=== PATIENT | female | born 1985 | race Two or more races ===

== ENCOUNTER 2025-04-22 13:55 | Inpatient (IN) | payer MEDICAID, OTHER ==
[~2025-04-22] VITALS: Ht 160 cm; Wt 83.1 kg
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
[2025-04-22 14:24] LABS: Eosinophils # (auto) 0.6 10 ^3/uL (0-0.8); Lymphocytes # (auto) 1.8 10 ^3/uL (0.4-5.4); Mean Corpuscular Hgb Conc. 35.3 g/dL (32.0-36.0); Red Blood Cells 2.66 10^6/uL (4.0-5.20); Red Cell Distribution Width 16.5 % (11.8-14.3)
[2025-04-22 14:26] LABS: Basophils # (auto) 0.1 10 ^3/uL (0-0.2); Eosinophils % (auto) 4.8 % (0.0-7.0); Hematocrit 34.9 % (36.0-46.0); Hemoglobin 12.3 g/dL (12.2-16.2); Lymphocytes % (auto) 13.6 % (10.0-50.0); Mean Corpuscular Hemoglobin 46.2 pg (28.0-32.0); Monocytes # (auto) 1.4 10 ^3/uL (0-1.3); Monocytes % (auto) 10.6 % (0.0-12.0); Nucleated Red Blood Cells % 0.2 %; Platelet Count (auto) 401 10^3/uL (140-450); White Blood Cell 12.9 10^3/uL (4.4-10.8)
[2025-04-22 14:34] LABS: Chloride 100 mmol/L (98-107)
[2025-04-22 14:35] LABS: Anion Gap 11 (5-15); Carbon Dioxide 24 mmol/L (20-31)
[2025-04-22 14:40] LABS: Calcium 8.2 mg/dL (8.7-10.4); Potassium 3.4 mmol/L (3.5-5.1); Sodium 135 mmol/L (136-145)
[2025-04-22 14:49] LABS: BUN/Creatinine Ratio 7.5 (10.0-20.0); Blood Urea Nitrogen < 5 mg/dL (9-23); Glucose 155 mg/dL (74-106)
[2025-04-22 16:46] LABS: Urine Bacteria FEW /hpf (None Seen); Urine Blood Negative /uL (Negative); Urine Clarity Turbid (Clear); Urine Color Dark-Yellow (Yellow); Urine Mucus FEW (None Seen); Urine Protein, UAD 1+ (Negative); Urine Squamous Epithelial Cell MOD /hpf (<5); Urine Urobilinogen 8 mg/dL (Negative); Urine WBC 10 /HPF (0-5)
--- NOTE | 2025-04-22 17:20 | DVH ---
Exam: CT CT AB PEL WO CON-NO ORAL OR IV History: pain, rule out hernia Comparison Study: None TECHNIQUE: Multidetector CT of the abdomen was performed from lung bases to pubic symphysis. Imaging was performed without IV contrast. Axial, coronal and sagittal multiplanar reformats were obtained fr om the axial data set by the technologist. Radiation Dose Information: CT Dose: CTDI volume is 10.03 mGy. Dose-length product is 586.83 mGy*cm FINDINGS: Evaluation of solid organs is limited due to lack of intravenous contrast use. Findings: Lung Bases: No acute or significant lung base finding. Normal heart size. No pleural or pericardial effusion. Liver: Heterogeneous liver recommend repeat study with IV contrast or MRI. Gallbladder and Biliary Tree: Unremarkable Spleen: Unremarkable Pancreas: The pancreas is grossly normal in appearance. Adrenal Glands: Unremarkable Kidneys: Kidneys are grossly normal without calculi or hydronephrosis. Bladder: Grossly unremarkable for degree of distention. Bowel: The stomach is grossly normal in appearance. Small bowel and colon are normal in caliber and d istribution. The appendix is not visualized; however, no secondary findings of acute appendicitis id entified. Ascites: Ascites scattered throughout the abdomen and pelvis Lymphadenopathy: No mesenteric, retroperitoneal or periportal lymphadenopathy. Abdominal Wall and Mesentery: Unremarkable. Vasculature: The visualized abdominal aorta is normal in size and caliber. Evaluation of abdominal a nd pelvic vessels is limited due to lack of intravenous contrast. Pelvic Organs: Unremarkable Musculoskeletal: No aggressive focal bony lesions, acute fractures or dislocation. Soft tissues: Unremarkable IMPRESSION: 1. Multiple intrahepatic masses. Recommend repeat study with IV contrast or MRI to exclude neoplastic etiology. 2. Ascites around the liver spleen scattered throughout the abdomen and pelvis. Radiation optimization: All CT scans at this facility use at least one of these dose optimization maryam hniques: automated exposure control mA and/or kV adjustment per patient size (includes targeted exam s where dose is matched to clinical indication) or iterative reconstruction.
[2025-04-22] MEDS: ALPRAZolam 0.25 MG TAB PO ONE (19:45)
[2025-04-22] MEDS ORDERED: NITROGLYCERIN 0.4 MG SL TAB SL PRN (20:30)
[2025-04-22] MEDS: POTASSIUM CHLORIDE 20 MEQ, LIDOCAINE 1% (LOCAL ANESTH.) 2 ML in SODIUM CHL 0.9% 100 ML IV ONE (21:00)
[2025-04-22] MEDS: LACTATED RINGER'S 1,000 ML IV ONE (21:12)
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
[2025-04-22] MEDS: LACTATED RINGER'S 1,550 ML IV ONE (21:26)
[2025-04-22] MEDS: cefTRIAXone 1GM/50ML D5W 50 ML IV SCH (21:32)
[2025-04-22] MEDS: ONDANSETRON HCL 4 MG/2 ML VIAL IV PRN (21:33)
[2025-04-22] MEDS: PANTOPRAZOLE 40 MG/10 ML VIAL INJ IV ONE (21:33)
[2025-04-22] MEDS: MORPHINE SULFATE INJ 2 MG/ml SYRG IV PRN ×2 (21:34→23:39)
[2025-04-22 21:38] LABS: Albumin 3.2 g/dL (3.2-4.8); Anion Gap 9 (5-15); Calcium 9.1 mg/dL (8.7-10.4); Carbon Dioxide 26 mmol/L (20-31); Chloride 101 mmol/L (98-107); Potassium 3.8 mmol/L (3.5-5.1); Sodium 136 mmol/L (136-145); Total Protein 5.8 g/dL (5.7-8.2)
[2025-04-22 21:41] LABS: Blood Alcohol < 3.0 mg/dL (<10)
[2025-04-22 21:42] LABS: Alanine Aminotransferase 68 U/L (7-40); Alkaline Phosphatase 171 U/L (46-116); Aspartate Aminotransferase 156 U/L (<34); BUN/Creatinine Ratio 7.5 (10.0-20.0); Bilirubin, Total 2.3 mg/dL (0.2-1.0); Blood Urea Nitrogen < 5 mg/dL (9-23); Glucose 110 mg/dL (74-106)
[2025-04-22 21:50] VITALS: O2SAT 98
[2025-04-22 21:52] LABS: Amphetamine Screen, Urine Neg (NEGATIVE); Barbiturate Scree,Urine Neg (NEGATIVE); Benzodiazephine Screen, Urine Neg (NEGATIVE); Cocaine Screen, Urine Neg (NEGATIVE); Opiate Scree,Urine Neg (NEGATIVE); Phencyclidine Screen, Urine Neg (NEGATIVE)
[2025-04-22 21:53] LABS: Cannabinoid Screen, Urine Pos (NEGATIVE)
[2025-04-22 21:54] LABS: % Iron Saturation 30.9 % (15-50)
[2025-04-22] MEDS: metroNIDAZOLE 500MG/100ML 100 ML IV SCH (22:00)
[2025-04-22 22:07] LABS: Lactic Acid w/Reflex 2.7 mmol/L (0.4-2.0)
[2025-04-22 22:19] LABS: INR 1.19 (0.9-1.15); Prothrombin Time 12.4 sec (9.3-11.8)
[2025-04-23 05:39] VITALS: BP 93/60; PULSE 95; RESP 16; TEMP 98; O2SAT 95
[2025-04-23 06:08] LABS: Basophils # (auto) 0.1 10 ^3/uL (0-0.2); Basophils % (auto) 1.3 % (0.0-2.0); Eosinophils # (auto) 0.4 10 ^3/uL (0-0.8); Hematocrit 30.6 % (36.0-46.0); Hemoglobin 10.8 g/dL (12.2-16.2); Lymphocytes # (auto) 1.9 10 ^3/uL (0.4-5.4); Lymphocytes % (auto) 23.7 % (10.0-50.0); Mean Corpuscular Hemoglobin 46.8 pg (28.0-32.0); Mean Corpuscular Hgb Conc. 35.3 g/dL (32.0-36.0); Mean Corpuscular Volume 132.5 fL (80.0-100.0); Monocytes # (auto) 0.8 10 ^3/uL (0-1.3); Monocytes % (auto) 10.4 % (0.0-12.0); Neutrophils # (auto) 4.8 10 ^3/uL (1.6-8.6); Neutrophils % (auto) 59.6 % (37.0-80.0); Nucleated Red Blood Cells % 0.1 %; Platelet Count (auto) 280 10^3/uL (140-450); Red Blood Cells 2.31 10^6/uL (4.0-5.20); Red Cell Distribution Width 16.4 % (11.8-14.3); White Blood Cell 8.1 10^3/uL (4.4-10.8)
[2025-04-23 06:24] LABS: Anion Gap 10 (5-15); Carbon Dioxide 25 mmol/L (20-31); Chloride 103 mmol/L (98-107); Glucose 83 mg/dL (74-106); Potassium 3.8 mmol/L (3.5-5.1); Sodium 138 mmol/L (136-145)
[2025-04-23 06:31] LABS: Alanine Aminotransferase 56 U/L (7-40); Albumin 2.9 g/dL (3.2-4.8); Alkaline Phosphatase 140 U/L (46-116); Aspartate Aminotransferase 123 U/L (<34); BUN/Creatinine Ratio 8.6 (10.0-20.0); Blood Urea Nitrogen < 5 mg/dL (9-23); Calcium 8.6 mg/dL (8.7-10.4); Total Protein 5.1 g/dL (5.7-8.2)
[2025-04-23 07:40] VITALS: PULSE 93; RESP 16; O2SAT 95
[2025-04-23 10:43] LABS: Folate (Folic Acid) 1.2 ng/mL (>5.38)
--- NOTE | 2025-04-23 10:59 | DVH ---
ULTRASOUND ABDOMEN limited, 4 QUADRANTS INDICATION: FLUID CHECK FOR POSSIBLE PARACENTESIS Evaluate for ascites. TECHNIQUE: The four quadrants of the abdomen were scanned in lora-scale to assess for the presence of ascites. N o solid organ assessment was performed. FINDINGS: Trace ascites, too small for paracentesis. IMPRESSIONS: 1. Trace ascites, too small for paracentesis.
[2025-04-23 11:06] LABS: Hepatitis B Core Total AB Negative (Negative)
[2025-04-23 11:20] LABS: Hepatitis A Total Antibody Positive (Negative); Hepatitis B Surface Antibody Positive (Negative)
[2025-04-23 11:21] LABS: Hepatitis B Surface Antigen Negative (Negative); Hepatitis C Antibody Negative (Negative)
[2025-04-23 15:40] VITALS: BP 94/52; PULSE 89; RESP 17; TEMP 97.7; O2SAT 96
--- NOTE | 2025-04-23 16:00 | DVHPN2 ---
Subjective Tolerating p.o. better, abdominal pain continues,. Reviewed: H&P Changes from previous H/P or p: No Changes General: Per HPI Eyes: No Pain, No Vision change, No Conjunctivae inflammation, No Eyelid inflammation, No Other, No Redness ENT: No Ear pain, No Ear discharge, No Nose pain, No Nose discharge, No Nose congestion, No Mouth pain, No Mouth swelling, No Throat pain, No Throat swelling, No Other Cardiovascular: No Chest Pain, No Palpitations, No Orthopnea, No Paroxysmal Noc. Dyspnea, No Edema, No Lt Headedness, No Other Respiratory: No Cough, No Dry, No Shortness of breath, No SOB with excertion, No Wheezing, No Hemoptysis, No Pleuritic Pain, No Sputum, No Other Gastrointestinal: Nausea; No Vomiting; Abdominal Pain, Diarrhea; No Constipation, No Melena, No Hematochezia, No Other Genitourinary: Dysuria, Frequency; No Incontinence, No Hematuria, No Retention, No Other Musculoskeletal: No other, No neck pain, No shoulder pain, No arm pain, No back pain, No hand pain, No leg pain, No foot pain Skin: No Rash, No Lesions, No Jaundice, No Bruising, No Other Objective Vitals Vital Signs Date Time Temp Pulse Resp B/P (MAP) Pulse Ox O2 Delivery O2 Flow Rate FiO2 04/23/25 14:00 90 14 90/44 (59) 95 04/23/25 07:40 Room Air* 0 21 04/23/25 07:40 99.0 99.0 Exam GEN: Healthy appearing, well-developed, NAD. HEENT: NC/AT; MMM. CV: Systolic murmur, regular rhythm, rate controlled LUNGS: CTAB, no w/r/c. ABD: Distended abdomen, bowel sounds present, left upper quadrant some resident otherwise tympanic. Liver nonpalpable. EXT: skin Warm, well perfused. no rashes. No clubbing, cyanosis, or edema. Left lower extremity edema +1. NEURO: Ambulating with no limitations. No focal deficits. Medications Current Medications Medications Dose Ordered Sig/Pro Route Start Time Stop Time Status Last Admin Dose Admin Ondansetron HCl 4 mg Q4HP PRN IV 04/22/25 20:30 04/22/25 21:33 4 MG Morphine Sulfate 2 mg Q4HPRN PRN IV 04/22/25 20:30 04/22/25 21:34 2 MG Nitroglycerin 0.4 mg Q5MINP PRN SL 04/22/25 20:30 Morphine Sulfate 2 mg Q30M PRN IV 04/22/25 20:30 04/23/25 01:31 2 MG Nicotine 1 patch DAILY PRN TD 04/22/25 21:00 Ceftriaxone Sodium 50 ml @ 100 mls/hr DAILY IV 04/22/25 21:00 04/28/25 10:29 04/23/25 10:30 100 MLS/HR Metronidazole 100 ml @ 100 mls/hr Q8HR IV 04/22/25 22:00 04/29/25 21:59 04/23/25 14:32 100 MLS/HR Oxycodone HCl 10 mg Q4HP PRN PO 04/23/25 15:15 UNV Ketorolac Tromethamine 15 mg Q6HPRN PRN IV 04/23/25 15:15 04/28/25 15:14 UNV Laboratory Results Laboratory Tests 04/23/25 05:35 Chemistry Test 04/22/25 21:03 04/23/25 05:35 Albumin 3.2 g/dL (3.2-4.8) 2.9 g/dL (3.2-4.8) L Calcium Level 9.1 mg/dL (8.7-10.4) 8.6 mg/dL (8.7-10.4) L Magnesium Level 2.0 mg/dL (1.6-2.6) Total Protein 5.8 g/dL (5.7-8.2) 5.1 g/dL (5.7-8.2) L Coagulation Test 04/22/25 21:03 Prothrombin Time 12.4 sec (9.3-11.8) H Prothrombin Time INR 1.19 (0.9-1.15) H LFT Test 04/22/25 21:03 04/23/25 05:35 Alanine Aminotransferase (ALT) 68 U/L (7-40) H 56 U/L (7-40) H Alkaline Phosphatase 171 U/L (46-116) H 140 U/L (46-116) H Aspartate Amino Transferase (AST) 156 U/L (<34) H 123 U/L (<34) H Total Bilirubin 2.3 mg/dL (0.2-1.0) H 2.0 mg/dL (0.2-1.0) H Urinalysis Test 04/22/25 16:14 Urine Color Dark-yellow (Yellow) Urine Clarity Turbid (Clear) H Urine pH 6.0 (5.0-9.0) Urine Specific [place] 1.020 (1.001-1.035) Urine Protein 1+ (Negative) H Urine Ketones Negative (Negative) Urine Blood Negative /uL (Negative) Urine Nitrite Negative (Negative) Urine Bilirubin 1+ (Negative) H Urine Urobilinogen 8 mg/dL (Negative) H Urine Leukocyte Esterase 1+ /uL (Negative) Urine RBC 3 /hpf (0 - 4) Urine Microscopic WBC 10 /HPF (0-5) H Urine Squamous Epithelial Cells Mod /hpf (<5) Urine Bacteria Few /hpf (None Seen) H Urine Mucus Few (None Seen) Urine Glucose Trace mg/dL (Normal) Microbiology Microbiology Date/Time Source Procedure Growth Status 04/22/25 16:14 Voided Urine Urine Culture - Preliminary Resulted Labs and/or images reviewed: Labs reviewed by me, Image(s) reviewed by me Assessment/Plan Assessment/Plan 04/23-patient with no past medical history coming here with diffuse abdominal pain unintentional weight loss and some watery diarrhea. CT abdomen concerning for masses. We will get CT abdomen with IV contrast. Continue pain control with oxycodone and Toradol. Creatinine is stable. Intractable abdominal pain Abdominal masses Hepatic masses Likely hepatic carcinoma Ascites, new diagnosed UTI Sepsis Leukocytosis Sinus tachycardia SBP possible, Gastroenteritis, infectious etiology possible Microcytic anemia IV antibiotics CT abdomen with IV contrast Pain control PRN Advance diet Continue other home medications Diet regular DVT prophylaxis-ambulatory GI prophylaxis-tolerating diet Telemetry Full code Plan discussed with: Patient My Orders Orders - MARY PEDRO MD Procedure Category Date Status Time Regular Diet DIET 04/23/25 Transmitted Dinner Oxycodone Immediate PHA 04/23/25 Logged Rel Tablet 15:15 Ketorolac Injection PHA 04/23/25 Logged (Toradol Injection) 15:15 Ct Ab Pel With Iv Con CT 04/23/25 Logged Only 15:08 Date of Service: Apr 23, 2025 Billing Provider: MARY PEDRO MD Common Visit Codes: [id number] INP/OBS CARE(HIGH) MARY PEDRO MD Apr 23, 2025 16:00
[2025-04-23 17:22] VITALS: BP 94/52; PULSE 89; RESP 17; TEMP 97.7; O2SAT 96
[2025-04-23] MEDS: KETOROLAC TROMETH 30 MG/ML 1ML VIAL IV PRN (17:28)
[2025-04-23 20:00] VITALS: PULSE 71; RESP 20; O2SAT 96
[2025-04-23] MEDS: NICOTINE 14 MG/24HR TOPICAL PATCH TD PRN (20:48)
[2025-04-23 21:00] VITALS: BP 108/65; PULSE 82; RESP 19; TEMP 97.8; O2SAT 98
[2025-04-23] MEDS: oxyCODONE HCL 5MG TAB PO PRN (22:52)
[2025-04-24 01:04] VITALS: BP 95/57; PULSE 71; RESP 20; TEMP 97.1; O2SAT 96
[2025-04-24] MEDS: diphenhdrAMINE HCL 25 MG CAP PO ONE (03:53)
[2025-04-24 05:03] VITALS: BP 96/60; PULSE 82; RESP 19; TEMP 97.3; O2SAT 96
[2025-04-24 06:37] LABS: Anion Gap 7 (5-15); Carbon Dioxide 26 mmol/L (20-31); Chloride 103 mmol/L (98-107); Glucose 98 mg/dL (74-106); Potassium 3.9 mmol/L (3.5-5.1)
[2025-04-24 06:38] LABS: Alanine Aminotransferase 44 U/L (7-40); Albumin 2.5 g/dL (3.2-4.8); Alkaline Phosphatase 130 U/L (46-116); Aspartate Aminotransferase 99 U/L (<34); BUN/Creatinine Ratio 7.1 (10.0-20.0); Blood Urea Nitrogen < 5 mg/dL (9-23); Calcium 7.8 mg/dL (8.7-10.4); Sodium 136 mmol/L (136-145); Total Protein 4.7 g/dL (5.7-8.2)
[2025-04-24 06:39] LABS: Bilirubin, Total 1.5 mg/dL (0.2-1.0)
[2025-04-24 08:17] VITALS: BP 81/46; PULSE 66; RESP 16; TEMP 98.2; O2SAT 97
--- NOTE | 2025-04-24 09:52 | DVHPN2 ---
Subjective Tolerating p.o. better, abdominal pain continues,. Reviewed: H&P Changes from previous H/P or p: No Changes General: Per HPI Eyes: No Pain, No Vision change, No Conjunctivae inflammation, No Eyelid inflammation, No Other, No Redness ENT: No Ear pain, No Ear discharge, No Nose pain, No Nose discharge, No Nose congestion, No Mouth pain, No Mouth swelling, No Throat pain, No Throat swelling, No Other Cardiovascular: No Chest Pain, No Palpitations, No Orthopnea, No Paroxysmal Noc. Dyspnea, No Edema, No Lt Headedness, No Other Respiratory: No Cough, No Dry, No Shortness of breath, No SOB with excertion, No Wheezing, No Hemoptysis, No Pleuritic Pain, No Sputum, No Other Gastrointestinal: Nausea; No Vomiting; Abdominal Pain, Diarrhea; No Constipation, No Melena, No Hematochezia, No Other Genitourinary: Dysuria, Frequency; No Incontinence, No Hematuria, No Retention, No Other Musculoskeletal: No other, No neck pain, No shoulder pain, No arm pain, No back pain, No hand pain, No leg pain, No foot pain Skin: No Rash, No Lesions, No Jaundice, No Bruising, No Other Objective Vitals Vital Signs Date Time Temp Pulse Resp B/P (MAP) Pulse Ox O2 Delivery O2 Flow Rate FiO2 04/24/25 08:17 98.2 66 16 81/46 (58) 97 98.2 04/23/25 20:00 Room Air* 0 21 Intake/Output Intake and Output 04/24/25 07:00 Intake Total 950 ml Balance 950 ml Intake Oral 600 ml IV Total 350 ml # Voids 2 Exam GEN: Healthy appearing, well-developed, NAD. HEENT: NC/AT; MMM. CV: Systolic murmur, regular rhythm, rate controlled LUNGS: CTAB, no w/r/c. ABD: Distended abdomen, bowel sounds present, left upper quadrant some resident otherwise tympanic. Liver nonpalpable. EXT: skin Warm, well perfused. no rashes. No clubbing, cyanosis, or edema. Left lower extremity edema +1. NEURO: Ambulating with no limitations. No focal deficits. Medications Current Medications Medications Dose Ordered Sig/Pro Route Start Time Stop Time Status Last Admin Dose Admin Ondansetron HCl 4 mg Q4HP PRN IV 04/22/25 20:30 04/22/25 21:33 4 MG Nitroglycerin 0.4 mg Q5MINP PRN SL 04/22/25 20:30 Morphine Sulfate 2 mg Q30M PRN IV 04/22/25 20:30 04/23/25 01:31 2 MG Nicotine 1 patch DAILY PRN TD 04/22/25 21:00 04/23/25 20:48 1 PATCH Ceftriaxone Sodium 50 ml @ 100 mls/hr DAILY IV 04/22/25 21:00 04/28/25 10:29 04/24/25 09:32 100 MLS/HR Metronidazole 100 ml @ 100 mls/hr Q8HR IV 04/22/25 22:00 04/29/25 21:59 04/24/25 05:39 100 MLS/HR Oxycodone HCl 10 mg Q4HP PRN PO 04/23/25 15:15 04/24/25 09:32 10 MG Ketorolac Tromethamine 15 mg Q6HPRN PRN IV 04/23/25 15:15 04/28/25 15:14 04/24/25 02:44 15 MG Laboratory Results Laboratory Tests 04/23/25 05:35 04/24/25 05:54 Chemistry Test 04/24/25 05:54 Albumin 2.5 g/dL (3.2-4.8) L Calcium Level 7.8 mg/dL (8.7-10.4) L Total Protein 4.7 g/dL (5.7-8.2) L LFT Test 04/24/25 05:54 Alanine Aminotransferase (ALT) 44 U/L (7-40) H Alkaline Phosphatase 130 U/L (46-116) H Aspartate Amino Transferase (AST) 99 U/L (<34) H Total Bilirubin 1.5 mg/dL (0.2-1.0) H Urinalysis Test 04/22/25 16:14 Urine Color Dark-yellow (Yellow) Urine Clarity Turbid (Clear) H Urine pH 6.0 (5.0-9.0) Urine Specific [place] 1.020 (1.001-1.035) Urine Protein 1+ (Negative) H Urine Ketones Negative (Negative) Urine Blood Negative /uL (Negative) Urine Nitrite Negative (Negative) Urine Bilirubin 1+ (Negative) H Urine Urobilinogen 8 mg/dL (Negative) H Urine Leukocyte Esterase 1+ /uL (Negative) Urine RBC 3 /hpf (0 - 4) Urine Microscopic WBC 10 /HPF (0-5) H Urine Squamous Epithelial Cells Mod /hpf (<5) Urine Bacteria Few /hpf (None Seen) H Urine Mucus Few (None Seen) Urine Glucose Trace mg/dL (Normal) Microbiology Microbiology Date/Time Source Procedure Growth Status 04/22/25 21:14 Blood Blood Culture - Preliminary NO GROWTH AFTER 24 HOURS OF INCUBATION. Resulted 04/22/25 16:14 Voided Urine Urine Culture - Preliminary Resulted Labs and/or images reviewed: Labs reviewed by me, Image(s) reviewed by me Assessment/Plan Assessment/Plan 04/23-patient with no past medical history coming here with diffuse abdominal pain unintentional weight loss and some watery diarrhea. CT abdomen concerning for masses. We will get CT abdomen with IV contrast. Continue pain control with oxycodone and Toradol. Creatinine is stable. 04/24 still requiring pain control. Blood pressure is still soft. Given multiple GI meclizine inpatient we will bring GI onboard. Pending read on CT abdomen with IV contrast, read comes back has multiple large liver masses in left lobes of liver. We will likely need a liver biopsy. We will continue oxycodone with Toradol for pain control SBP is soft. Radiology consult for IR biopsy of liver mass. She has bilateral leg swelling right more than left, we will rule out DVT with ultrasound DVT study. Intractable abdominal pain Abdominal masses Hepatic masses Likely hepatic carcinoma Ascites, new diagnosed UTI Sepsis Leukocytosis Sinus tachycardia SBP possible, Gastroenteritis, infectious etiology possible Microcytic anemia -IV antibiotics -CT abdomen with IV contrast -Pain control PRN -Advance diet -Continue other home medications - PT eval was ordered during ER/admission. - ultrasound DVT study today 04/24/2025. Diet regular DVT prophylaxis-ambulatory GI prophylaxis-tolerating diet Telemetry Full code Plan discussed with: Patient My Orders Orders - MARY PEDRO MD Procedure Category Date Status Time Regular Diet DIET 04/23/25 Transmitted Dinner Oxycodone Immediate PHA 04/23/25 In Process Rel Tablet 15:15 Ketorolac Injection PHA 04/23/25 In Process (Toradol Injection) 15:15 Ct Ab Pel With Iv Con CT 04/24/25 Taken Only 08:13 * [facility] Resident Surgeon CONS 04/24/25 Transmitted 09:19 Date of Service: Apr 24, 2025 Billing Provider: MARY PEDRO MD Common Visit Codes: [id number] INP/OBS CARE(HIGH) MARY PEDRO MD Apr 24, 2025 09:51
[2025-04-24] MEDS ORDERED: diphenhdrAMINE HCL 25 MG CAP PO PRN (10:00)
--- NOTE | 2025-04-24 10:43 | DVH ---
Exam: CT CT AB PEL WITH IV CON ONLY History: eval liver masses COMPARISON: None Technique: Multidetector spiral CT of the abdomen and pelvis was performed from lung bases to pubic symphysis. Intravenous contrast was administered during this examination. Portal venous imaging was obtained. Axial, coronal and sagittal multiplanar reformats were performed by the technologist on a separate workstation. Radiation Dose : Abdomen/Pelvis: CTDIvol 15.65 mGy, DLP 809.37 mGy*cm. CONTRAST: Type of contrast: Omni 300 Contrast injected: 100 mL Findings: Lung Bases: Atelectasis and consolidation in the lung bases. Liver: Multiple large infiltrative liver masses replacing most of the left lobe of the liver and a la rge part of the right lobe of the liver. Largest mass measures up to 163 mm. Gallbladder and biliary Tree: Unremarkable Spleen: Unremarkable Pancreas: The pancreas is normal in appearance without focal lesions or abnormal enhancement. Adrenal Glands: Unremarkable Kidneys: No hydronephrosis. Bladder: Unremarkable Bowel: The stomach is grossly normal in appearance. Small bowel and colon are normal in caliber and d istribution. The appendix is not visualized; however, no secondary findings of acute appendicitis monica ntified. Ascites: Small to moderate abdominal and pelvic ascites. Lymphadenopathy: Shotty retroperitoneal lymphadenopathy. Abdominal wall and Mesentery: Anasarca. Vasculature: The visualized abdominal aorta is normal in size and caliber. Abdominal and pelvic vess els demonstrate normal enhancement. Pelvic Organs: Unremarkable Musculoskeletal: No aggressive focal bony lesions, acute fractures or dislocation. IMPRESSION: 1. Multiple large masses in the liver replacing most of the left lobe and a large portion of the righ t lobe concerning for malignant disease. CT-guided biopsy of the left lobe of the liver could be atte mpted. [id number] ascites which is likely malignant. Shotty retroperitoneal lymphadenopathy is nonspecific. Atelectasis and consolidation in the visualized lung bases. Consider dedicated chest CT. Radiation optimization: All CT scans at this facility use at least one of these dose optimization maryam hniques: Automated exposure control mA and/or kV adjustment per patient size (includes targeted exams where dose is matched to clinical indication) or iterative reconstruction. HS:Y
[2025-04-24 12:37] VITALS: BP 97/59; PULSE 82; RESP 18; TEMP 98.8; O2SAT 96
--- NOTE | 2025-04-24 12:56 | DVH ---
Bilateral lower extremity venous duplex Clinical History: BL leg swelling, r/o dvt Comparison: None Technique: Duplex doppler evaluation of the deep venous systems of both lower extremities from the common femora l veins to the popliteal veins including color doppler and spectral/pulsed waveform analysis was perf ormed. Findings: RIGHT SIDE: The common femoral vein demonstrates appropriate compressibility and waveform variability. There is compressibility/patency of the great saphenous vein at the proximal thigh. The femoral vein demonstrates appropriate compressibility and waveform variability. The deep femoral vein demonstrates appropriate compressibility and waveform variability. The popliteal vein demonstrates appropriate compressibility and waveform variability. There is normal compressibility at the tibioperoneal trunk. LEFT SIDE: The common femoral vein demonstrates appropriate compressibility and waveform variability. There is compressibility/patency of the great saphenous vein at the proximal thigh. The femoral vein demonstrates appropriate compressibility and waveform variability. The deep femoral vein demonstrates appropriate compressibility and waveform variability. The popliteal vein demonstrates appropriate compressibility and waveform variability. There is normal compressibility at the tibioperoneal trunk. Impression: 1. No right or left femoropopliteal venous thrombosis.
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
--- NOTE | 2025-04-24 15:26 | DVH ---
PROCEDURE: ULTRASOUND GUIDED PARACENTESIS HISTORY: 39 Female requiring paracentesis. TECHNIQUE: The risks and benefits of the procedure including but not limited to bleeding, infection and injury t o abdominal organs were explained to the patient and written informed consent was obtained. Optimal site for puncture was determined using ultrasound and the area sterilized and draped. Using a 5 [place] [employer] catheter, paracentesis was performed in the left lower abdomen. Approximately 0.75 L of straw colored fluid was removed. The patient tolerated the procedure well. There were no immedia te complications. IMPRESSION: Ultrasound-guided paracentesis with no immediate complications.
--- NOTE | 2025-04-24 15:38 | DVH ---
US US GUIDANCE FOR NEEDLE PLACEME, HISTORY: LT LOBE LIVER MASS BIOPSY PROCEDURE: Informed consent was obtained. The patient was placed supine on the gurney, and limited US was performed of the liver. The skin over the area of interest was prepped with chlorhexidine which was allowed to dry and draped in the usual sterile fashion. Time out was performed. 1% local lidocai ne was administered. With intermittent US guidance, Temno 17 gauge outer coaxial guiding needle was a dvanced into the left liver . A single core biopsy was obtained using Temno 18 gauge inner core biops y needle. The specimens were placed in formalin and sent to pathology for analysis. The needle was wi thdrawn , and the visceral tract embolized with gelfoam pledgets. 10 minutes of pressure was held. Po st procedural images were obtained. No immediate complication was identified. FINDINGS: Left hepatic lobe appears echogenic and heterogeneous, with the are a of biopsy correlated to the CT A/P with IV contrast done previously. The area of the left hepatic lobe mass seen on the CT was then biopsied.. Intra-procedural images demonstrate biopsy needle within the left hepatic lobe . Post procedural images do not demonstrate any significant hemorrhage. IMPRESSION: Left hepatic lobe appears echogenic and heterogeneous, with the are a of biopsy correlated to the CT A/P with IV contrast done previously. The area of the left hepatic lobe mass seen on the CT was then biopsied. Pathology results pending.
[2025-04-24 16:16] LABS: Body Fluid Red Blood Cells 37 CUMM (0-2000); Body Fluid White Blood Cells 233 CUMM (0-200)
[2025-04-24 16:22] VITALS: BP 104/64; PULSE 81; RESP 21; TEMP 97.8; O2SAT 94
[2025-04-24 20:06] LABS: Chlamydia Trachomatis, NAA Negative (Negative); Neisseria gonorrhoeae, NAA Negative (Negative)
[2025-04-24] MEDS: MELATONIN 5 MG TAB PO SCH (20:23)
[2025-04-24 21:22] VITALS: BP 102/64; PULSE 91; RESP 18; TEMP 97.9; O2SAT 97
[2025-04-25] VITALS (7 sets, daily range): BP systolic 96–107; BP diastolic 58–72; PULSE 75–95; RESP 16–20; TEMP 97.6–98.7; O2SAT 95–97
[2025-04-25 07:08] LABS: Anion Gap 8 (5-15); Carbon Dioxide 24 mmol/L (20-31); Chloride 103 mmol/L (98-107); Glucose 103 mg/dL (74-106)
[2025-04-25 07:11] LABS: Alanine Aminotransferase 44 U/L (7-40); Albumin 2.6 g/dL (3.2-4.8); Alkaline Phosphatase 136 U/L (46-116); Aspartate Aminotransferase 104 U/L (<34); BUN/Creatinine Ratio 8.6 (10.0-20.0); Bilirubin, Total 1.2 mg/dL (0.2-1.0); Blood Urea Nitrogen < 5 mg/dL (9-23); Calcium 7.8 mg/dL (8.7-10.4); Sodium 135 mmol/L (136-145); Total Protein 4.9 g/dL (5.7-8.2)
--- NOTE | 2025-04-25 10:56 | DVHPN2 ---
Subjective Tolerating p.o. better, abdominal pain continues,. Reviewed: H&P Changes from previous H/P or p: No Changes General: Per HPI Eyes: No Pain, No Vision change, No Conjunctivae inflammation, No Eyelid inflammation, No Other, No Redness ENT: No Ear pain, No Ear discharge, No Nose pain, No Nose discharge, No Nose congestion, No Mouth pain, No Mouth swelling, No Throat pain, No Throat swelling, No Other Cardiovascular: No Chest Pain, No Palpitations, No Orthopnea, No Paroxysmal Noc. Dyspnea, No Edema, No Lt Headedness, No Other Respiratory: No Cough, No Dry, No Shortness of breath, No SOB with excertion, No Wheezing, No Hemoptysis, No Pleuritic Pain, No Sputum, No Other Gastrointestinal: Nausea; No Vomiting; Abdominal Pain, Diarrhea; No Constipation, No Melena, No Hematochezia, No Other Genitourinary: Dysuria, Frequency; No Incontinence, No Hematuria, No Retention, No Other Musculoskeletal: No other, No neck pain, No shoulder pain, No arm pain, No back pain, No hand pain, No leg pain, No foot pain Skin: No Rash, No Lesions, No Jaundice, No Bruising, No Other Objective Vitals Vital Signs Date Time Temp Pulse Resp B/P (MAP) Pulse Ox O2 Delivery O2 Flow Rate FiO2 04/25/25 08:47 98.7 87 16 101/62 (75) 97 98.7 04/24/25 20:10 Room Air* 0 21 Intake/Output Intake and Output 04/25/25 07:00 Intake Total 2930 ml Balance 2930 ml Intake Oral 2580 ml IV Total 350 ml # Voids 3 Exam GEN: Healthy appearing, well-developed, NAD. HEENT: NC/AT; MMM. CV: Systolic murmur, regular rhythm, rate controlled LUNGS: CTAB, no w/r/c. ABD: Distended abdomen, bowel sounds present, left upper quadrant some resident otherwise tympanic. Liver nonpalpable. EXT: skin Warm, well perfused. no rashes. No clubbing, cyanosis, or edema. Left lower extremity edema +1. NEURO: Ambulating with no limitations. No focal deficits. Medications Current Medications Medications Dose Ordered Sig/Pro Route Start Time Stop Time Status Last Admin Dose Admin Ondansetron HCl 4 mg Q4HP PRN IV 04/22/25 20:30 04/25/25 09:08 4 MG Nitroglycerin 0.4 mg Q5MINP PRN SL 04/22/25 20:30 Morphine Sulfate 2 mg Q30M PRN IV 04/22/25 20:30 04/23/25 01:31 2 MG Nicotine 1 patch DAILY PRN TD 04/22/25 21:00 04/23/25 20:48 1 PATCH Ceftriaxone Sodium 50 ml @ 100 mls/hr DAILY IV 04/22/25 21:00 04/28/25 10:29 04/24/25 09:32 100 MLS/HR Metronidazole 100 ml @ 100 mls/hr Q8HR IV 04/22/25 22:00 04/29/25 21:59 04/25/25 05:11 100 MLS/HR Oxycodone HCl 10 mg Q4HP PRN PO 04/23/25 15:15 04/25/25 09:10 10 MG Ketorolac Tromethamine 15 mg Q6HPRN PRN IV 04/23/25 15:15 04/28/25 15:14 04/24/25 02:44 15 MG Diphenhydramine HCl 50 mg Q6HP PRN PO 04/24/25 10:00 Melatonin 10 mg HS PO 04/24/25 22:00 04/24/25 20:23 10 MG Laboratory Results Laboratory Tests 04/23/25 05:35 04/25/25 06:15 Chemistry Test 04/25/25 06:15 Albumin 2.6 g/dL (3.2-4.8) L Calcium Level 7.8 mg/dL (8.7-10.4) L Total Protein 4.9 g/dL (5.7-8.2) L LFT Test 04/25/25 06:15 Alanine Aminotransferase (ALT) 44 U/L (7-40) H Alkaline Phosphatase 136 U/L (46-116) H Aspartate Amino Transferase (AST) 104 U/L (<34) H Total Bilirubin 1.2 mg/dL (0.2-1.0) H Urinalysis Test 04/22/25 16:14 Urine Color Dark-yellow (Yellow) Urine Clarity Turbid (Clear) H Urine pH 6.0 (5.0-9.0) Urine Specific [place] 1.020 (1.001-1.035) Urine Protein 1+ (Negative) H Urine Ketones Negative (Negative) Urine Blood Negative /uL (Negative) Urine Nitrite Negative (Negative) Urine Bilirubin 1+ (Negative) H Urine Urobilinogen 8 mg/dL (Negative) H Urine Leukocyte Esterase 1+ /uL (Negative) Urine RBC 3 /hpf (0 - 4) Urine Microscopic WBC 10 /HPF (0-5) H Urine Squamous Epithelial Cells Mod /hpf (<5) Urine Bacteria Few /hpf (None Seen) H Urine Mucus Few (None Seen) Urine Glucose Trace mg/dL (Normal) Microbiology Microbiology Date/Time Source Procedure Growth Status 04/22/25 21:14 Blood Blood Culture - Preliminary NO GROWTH AFTER 48 HOURS OF INCUBATION. Resulted 04/22/25 16:14 Voided Urine Urine Culture - Final Complete Labs and/or images reviewed: Labs reviewed by me, Image(s) reviewed by me Assessment/Plan Assessment/Plan 04/23-patient with no past medical history coming here with diffuse abdominal pain unintentional weight loss and some watery diarrhea. CT abdomen concerning for masses. We will get CT abdomen with IV contrast. Continue pain control with oxycodone and Toradol. Creatinine is stable. 04/24 still requiring pain control. Blood pressure is still soft. Given multiple GI meclizine inpatient we will bring GI onboard. Pending read on CT abdomen with IV contrast, read comes back has multiple large liver masses in left lobes of liver. We will likely need a liver biopsy. We will continue oxycodone with Toradol for pain control SBP is soft. Radiology consult for IR biopsy of liver mass. She has bilateral leg swelling right more than left, we will rule out DVT with ultrasound DVT study. 04/25- radiology did liver biopsy yesterday. Patient labs are stable plateau. In terms of AST ALT ALP. Masses or concerning for cancer on imaging with CT abdomen with contrast. Pathologist aware, we will contact pathologist to see if he can get expedited read. GI consulted and wants to do colonoscopy possibly outpatient. If read available today we will try to consult Oncology and have patient follow up with GI and Oncology outpatient. Social consulted to help set up PCP and insurance.. DVT study for lower extremities was negative. 750 cc straw-colored ascites fluid removed with paracentesis by IR yesterday. There is possibility that this could be infection we will start antibiotics ceftriaxone metronidazole Diagnosis: Intractable abdominal pain Abdominal masses Hepatic masses Likely hepatic carcinoma Ascites, new diagnosed UTI Sepsis Leukocytosis Sinus tachycardia SBP possible, Gastroenteritis, infectious etiology possible Microcytic anemia Plan: -IV antibiotics -Pain control PRN -Advance diet -Continue other home medications - PT eval was ordered during ER/admission. Diet regular DVT prophylaxis-ambulatory GI prophylaxis-tolerating diet Telemetry Full code Plan discussed with: Patient My Orders Orders - MARY PEDRO MD Procedure Category Date Status Time * Radiologist Consult CONS 04/24/25 Transmitted 11:22 Bilat Lower Dvt US 04/24/25 Resulted 11:34 Us Guidance For US 04/24/25 Resulted Needle Placeme 13:06 * Gi [facility] [employer] CONS 04/24/25 Transmitted 13:13 Paracentesis US 04/24/25 Resulted Date of Service: Apr 25, 2025 Billing Provider: MARY PEDRO MD Common Visit Codes: [id number] INP/OBS CARE(HIGH) MARY PEDRO MD Apr 25, 2025 10:56
[2025-04-25 13:07] LABS: Protein, Body Fluid 0.9 g/dL (.)
[2025-04-25] MEDS: IOHEXOL 300 MG/ML 100ML BOTTLE IJ ONE (14:44)
[2025-04-25] MEDS: GELATIN 1 SPONGE SIZE 50 TOP ONE (14:45)
[2025-04-25] MEDS ORDERED: metroNIDAZOLE 500MG/100ML 100 ML IV ONE (14:45)
[2025-04-25] MEDS ORDERED: cefTRIAXone 1GM/50ML D5W 50 ML IV ONE (14:45)
[2025-04-25] MEDS: metroNIDAZOLE 500MG/100ML 100 ML IV SCH (21:21)
--- NOTE | 2025-04-25 22:25 | DVHPN2 ---
Progress Note - Dictate Date Seen: Apr 25, 2025 Medical Necessity Reason Pt with a Central, PICC or Fol: No Subjective Continued abdominal pain and distention Tolerating small portions of her diet vital signs Vital Sign Date Time Temp Pulse Resp B/P (MAP) Pulse Ox O2 Delivery O2 Flow Rate FiO2 04/25/25 21:00 97.6 91 20 104/72 (83) 97 97.6 04/25/25 08:10 Room Air* 0 21 Total Intake and Output 04/24/25 04/24/25 04/25/25 15:00 23:00 07:00 Intake Total 50 ml 1800 ml 1080 ml Balance 50 ml 1800 ml 1080 ml medications Current Medications Medications Dose Ordered Sig/Pro Route Start Time Stop Time Status Last Admin Dose Admin Ondansetron HCl 4 mg Q4HP PRN IV 04/22/25 20:30 04/25/25 09:08 4 MG Nitroglycerin 0.4 mg Q5MINP PRN SL 04/22/25 20:30 Morphine Sulfate 2 mg Q30M PRN IV 04/22/25 20:30 04/23/25 01:31 2 MG Nicotine 1 patch DAILY PRN TD 04/22/25 21:00 04/23/25 20:48 1 PATCH Oxycodone HCl 10 mg Q4HP PRN PO 04/23/25 15:15 04/25/25 19:48 10 MG Ketorolac Tromethamine 15 mg Q6HPRN PRN IV 04/23/25 15:15 04/28/25 15:14 04/24/25 02:44 15 MG Diphenhydramine HCl 50 mg Q6HP PRN PO 04/24/25 10:00 Melatonin 10 mg HS PO 04/24/25 22:00 04/25/25 21:22 10 MG Ceftriaxone Sodium 50 ml @ 100 mls/hr DAILY@09 IV 04/26/25 09:00 Metronidazole 100 ml @ 100 mls/hr Q8HR IV 04/25/25 22:00 04/25/25 21:21 100 MLS/HR objective General: NAD, AAOX3 Chest: lung black clear to auscultation Heart: RRR, no murmur Abdomen: Moderate-distended, mild generalized tenderness to palpation, +BS Ext skin flushing and redness laboratory and microbiology Laboratory Tests 04/25/25 06:15 04/23/25 05:35 Test 04/25/25 06:15 Range/Units Serum Glucose 103 74-106 mg/dL Problems(with codes): (1) Liver masses (2) Abdominal pain (3) Ascites Prognosis Plan Await biopsy results and we will try to get preliminary report tomorrow Advance diet as tolerated Supportive care ; nutritional supplements Discharge planning as per hospitalist, aids social worker evaluating her insurance status Patient does not need an urgent colonoscopy at this time, I will be standing by awaiting final pathology results prior to initiating any GI workup Plan discussed with: Patient, Other (Dr Hernandez) HALI SALAZAR MD Apr 25, 2025 22:24
[2025-04-26] VITALS (7 sets, daily range): BP systolic 93–103; BP diastolic 50–64; PULSE 69–94; RESP 16–20; TEMP 36.8; O2SAT 91–99
[2025-04-26 04:58] LABS: Urine Bacteria None Seen /hpf (None Seen)
[2025-04-26 05:25] LABS: Urine Blood Negative /uL (Negative); Urine Clarity Clear (Clear); Urine Color Yellow (Yellow); Urine Protein, UAD Negative (Negative); Urine Specific Gravity 1.006 (1.001-1.035); Urine Squamous Epithelial Cell FEW /hpf (<5); Urine Urobilinogen Normal (Negative); Urine WBC 6 /HPF (0-5); Urine pH 5.5 (5.0-9.0)
[2025-04-26 05:39] LABS: Basophils # (auto) 0.1 10 ^3/uL (0-0.2); Basophils % (auto) 0.8 % (0.0-2.0); Eosinophils # (auto) 0.3 10 ^3/uL (0-0.8); Eosinophils % (auto) 4.3 % (0.0-7.0); Hematocrit 29.1 % (36.0-46.0); Hemoglobin 10.1 g/dL (12.2-16.2); Lymphocytes % (auto) 14.9 % (10.0-50.0); Mean Corpuscular Hgb Conc. 34.8 g/dL (32.0-36.0); Mean Corpuscular Volume 132.2 fL (80.0-100.0); Monocytes # (auto) 0.7 10 ^3/uL (0-1.3); Monocytes % (auto) 11.2 % (0.0-12.0); Neutrophils # (auto) 4.5 10 ^3/uL (1.6-8.6); Neutrophils % (auto) 68.8 % (37.0-80.0); Nucleated Red Blood Cells % 0.1 %; Platelet Count (auto) 221 10^3/uL (140-450); Red Cell Distribution Width 15.7 % (11.8-14.3); White Blood Cell 6.5 10^3/uL (4.4-10.8)
[2025-04-26 06:04] LABS: Alanine Aminotransferase 44 U/L (7-40); Albumin 2.7 g/dL (3.2-4.8); Alkaline Phosphatase 131 U/L (46-116); Anion Gap 7 (5-15); Aspartate Aminotransferase 99 U/L (<34); BUN/Creatinine Ratio 8.9 (10.0-20.0); Bilirubin, Total 1.4 mg/dL (0.2-1.0); Blood Urea Nitrogen < 5 mg/dL (9-23); Calcium 7.8 mg/dL (8.7-10.4); Carbon Dioxide 26 mmol/L (20-31); Chloride 102 mmol/L (98-107); Glucose 113 mg/dL (74-106); Potassium 3.7 mmol/L (3.5-5.1); Sodium 135 mmol/L (136-145); Total Protein 5.1 g/dL (5.7-8.2)
[2025-04-26] MEDS: cefTRIAXone 1GM/50ML D5W 50 ML IV SCH (09:08)
--- NOTE | 2025-04-26 11:01 | DVHPN2 ---
Subjective Tolerating p.o. better, abdominal pain continues,. Reviewed: H&P Changes from previous H/P or p: No Changes General: Per HPI Eyes: No Pain, No Vision change, No Conjunctivae inflammation, No Eyelid inflammation, No Other, No Redness ENT: No Ear pain, No Ear discharge, No Nose pain, No Nose discharge, No Nose congestion, No Mouth pain, No Mouth swelling, No Throat pain, No Throat swelling, No Other Cardiovascular: No Chest Pain, No Palpitations, No Orthopnea, No Paroxysmal Noc. Dyspnea, No Edema, No Lt Headedness, No Other Respiratory: No Cough, No Dry, No Shortness of breath, No SOB with excertion, No Wheezing, No Hemoptysis, No Pleuritic Pain, No Sputum, No Other Gastrointestinal: Nausea; No Vomiting; Abdominal Pain, Diarrhea; No Constipation, No Melena, No Hematochezia, No Other Genitourinary: Dysuria, Frequency; No Incontinence, No Hematuria, No Retention, No Other Musculoskeletal: No other, No neck pain, No shoulder pain, No arm pain, No back pain, No hand pain, No leg pain, No foot pain Skin: No Rash, No Lesions, No Jaundice, No Bruising, No Other Objective Vitals Vital Signs Date Time Temp Pulse Resp B/P (MAP) Pulse Ox O2 Delivery O2 Flow Rate FiO2 04/26/25 08:57 98.4 92 16 99/55 (70) 91 98.4 04/25/25 20:00 Room Air* 0 21 Intake/Output Intake and Output 04/26/25 07:00 Intake Total 1350 ml Balance 1350 ml Intake Oral 1200 ml IV Total 150 ml # Voids 4 # Bowel Movements 1 Exam GEN: Healthy appearing, well-developed, NAD. HEENT: NC/AT; MMM. CV: Systolic murmur, regular rhythm, rate controlled LUNGS: CTAB, no w/r/c. ABD: Distended abdomen, bowel sounds present, left upper quadrant some resident otherwise tympanic. Liver nonpalpable. EXT: skin Warm, well perfused. no rashes. No clubbing, cyanosis, or edema. Left lower extremity edema +1. NEURO: Ambulating with no limitations. No focal deficits. Medications Current Medications Medications Dose Ordered Sig/Pro Route Start Time Stop Time Status Last Admin Dose Admin Ondansetron HCl 4 mg Q4HP PRN IV 04/22/25 20:30 04/25/25 09:08 4 MG Nitroglycerin 0.4 mg Q5MINP PRN SL 04/22/25 20:30 Morphine Sulfate 2 mg Q30M PRN IV 04/22/25 20:30 04/23/25 01:31 2 MG Nicotine 1 patch DAILY PRN TD 04/22/25 21:00 04/23/25 20:48 1 PATCH Oxycodone HCl 10 mg Q4HP PRN PO 04/23/25 15:15 04/25/25 19:48 10 MG Ketorolac Tromethamine 15 mg Q6HPRN PRN IV 04/23/25 15:15 04/28/25 15:14 04/24/25 02:44 15 MG Diphenhydramine HCl 50 mg Q6HP PRN PO 04/24/25 10:00 Melatonin 10 mg HS PO 04/24/25 22:00 04/25/25 21:22 10 MG Ceftriaxone Sodium 50 ml @ 100 mls/hr DAILY@09 IV 04/26/25 09:00 04/26/25 09:08 100 MLS/HR Metronidazole 100 ml @ 100 mls/hr Q8HR IV 04/25/25 22:00 04/26/25 07:30 100 MLS/HR Laboratory Results Laboratory Tests 04/26/25 05:07 Chemistry Test 04/26/25 05:07 Albumin 2.7 g/dL (3.2-4.8) L Calcium Level 7.8 mg/dL (8.7-10.4) L Total Protein 5.1 g/dL (5.7-8.2) L LFT Test 04/26/25 05:07 Alanine Aminotransferase (ALT) 44 U/L (7-40) H Alkaline Phosphatase 131 U/L (46-116) H Aspartate Amino Transferase (AST) 99 U/L (<34) H Total Bilirubin 1.4 mg/dL (0.2-1.0) H Urinalysis Test 04/22/25 16:14 04/26/25 04:30 Urine Mucus Few (None Seen) Urine Color Yellow (Yellow) Urine Clarity Clear (Clear) Urine pH 5.5 (5.0-9.0) Urine Specific [place] 1.006 (1.001-1.035) Urine Protein Negative (Negative) Urine Ketones Negative (Negative) Urine Blood Negative /uL (Negative) Urine Nitrite Negative (Negative) Urine Bilirubin Negative (Negative) Urine Urobilinogen Normal mg/dL (Negative) Urine Leukocyte Esterase 3+ /uL (Negative) Urine RBC 1 /hpf (0 - 4) Urine Microscopic WBC 6 /HPF (0-5) H Urine Squamous Epithelial Cells Few /hpf (<5) Urine Bacteria None seen /hpf (None Seen) Urine Glucose Normal mg/dL (Normal) Microbiology Microbiology Date/Time Source Procedure Growth Status 04/24/25 13:45 Ascities Fluid Gram Stain - Final Resulted 04/24/25 13:45 Ascities Fluid Body Fluid Culture - Preliminary Resulted 04/22/25 21:14 Blood Blood Culture - Preliminary NO GROWTH AFTER 72 HOURS OF INCUBATION. Resulted 04/22/25 16:14 Voided Urine Urine Culture - Final Complete Labs and/or images reviewed: Labs reviewed by me, Image(s) reviewed by me Assessment/Plan Assessment/Plan 04/23-patient with no past medical history coming here with diffuse abdominal pain unintentional weight loss and some watery diarrhea. CT abdomen concerning for masses. We will get CT abdomen with IV contrast. Continue pain control with oxycodone and Toradol. Creatinine is stable. 04/24 still requiring pain control. Blood pressure is still soft. Given multiple GI meclizine inpatient we will bring GI onboard. Pending read on CT abdomen with IV contrast, read comes back has multiple large liver masses in left lobes of liver. We will likely need a liver biopsy. We will continue oxycodone with Toradol for pain control SBP is soft. Radiology consult for IR biopsy of liver mass. She has bilateral leg swelling right more than left, we will rule out DVT with ultrasound DVT study. 04/25- radiology did liver biopsy yesterday. Patient labs are stable plateau. In terms of AST ALT ALP. Masses or concerning for cancer on imaging with CT abdomen with contrast. Pathologist aware, we will contact pathologist to see if he can get expedited read. GI consulted and wants to do colonoscopy possibly outpatient. If read available today we will try to consult Oncology and have patient follow up with GI and Oncology outpatient. Social consulted to help set up PCP and insurance.. DVT study for lower extremities was negative. 750 cc straw-colored ascites fluid removed with paracentesis by IR yesterday. There is possibility that this could be infection we will start antibiotics ceftriaxone metronidazole 04/26 we will continue IV antibiotics we will contact to pathology to see if there is any preliminary results of biopsy/ascitic fluid. Diagnosis: Intractable abdominal pain Abdominal masses Hepatic masses Likely hepatic carcinoma Ascites, new diagnosed UTI Sepsis Leukocytosis Sinus tachycardia SBP possible, Gastroenteritis, infectious etiology possible Microcytic anemia Plan: -IV antibiotics -Pain control PRN -Advance diet -Continue other home medications - PT eval was ordered during ER/admission. Diet regular DVT prophylaxis-ambulatory GI prophylaxis-tolerating diet Telemetry Full code Plan discussed with: Patient My Orders Orders - MARY PEDRO MD Procedure Category Date Status Time Ceftriaxone 1gm/50ml PHA 04/26/25 In Process D5w (Rocephin) 09:00 Metronidazole PHA 04/25/25 In Process 500mg/100ml (Flagyl 22:00 Urine Bacterial ALMA 04/25/25 Uncollected Culture 18:56 Date of Service: Apr 26, 2025 Billing Provider: MARY PEDRO MD Common Visit Codes: NOT BILLABLE MARY PEDRO MD Apr 26, 2025 11:01
[2025-04-26] MEDS ORDERED: SPIR25TA PO (17:03)
[2025-04-26] MEDS ORDERED: NIC21P TOP (17:03)
[2025-04-26] MEDS ORDERED: MID10T PO (17:03)
[2025-04-26] MEDS ORDERED: FURO1TAB33 PO (17:03)
[2025-04-26] MEDS ORDERED: OXYC15TA48 PO (17:14)
--- NOTE | 2025-04-26 17:20 | DVHDS2 ---
Discharge Summary Date of Admission Apr 22, 2025 at 20:23 Date of Discharge: Apr 26, 2025 Labs/Diagnostic Data: Laboratory Results Test 04/26/25 05:07 04/26/25 04:30 04/25/25 06:15 04/24/25 15:25 White Blood Count 6.5 10^3/uL (4.4-10.8) Red Blood Count 2.20 10^6/uL (4.0-5.20) Hemoglobin 10.1 g/dL (12.2-16.2) Hematocrit 29.1 % (36.0-46.0) Mean Corpuscular Volume 132.2 fL (80.0-100.0) Mean Corpuscular Hemoglobin 46.0 pg (28.0-32.0) Mean Corpuscular Hemoglobin Concent 34.8 g/dL (32.0-36.0) Red Cell Distribution Width 15.7 % (11.8-14.3) Platelet Count 221 10^3/uL (140-450) Mean Platelet Volume 7.7 fL (6.9-10.8) Neutrophils (%) (Auto) 68.8 % (37.0-80.0) Lymphocytes (%) (Auto) 14.9 % (10.0-50.0) Monocytes (%) (Auto) 11.2 % (0.0-12.0) Eosinophils (%) (Auto) 4.3 % (0.0-7.0) Basophils (%) (Auto) 0.8 % (0.0-2.0) Neutrophils # (Auto) 4.5 10 ^3/uL (1.6-8.6) Lymphocytes # (Auto) 1.0 10 ^3/uL (0.4-5.4) Monocytes # (Auto) 0.7 10 ^3/uL (0-1.3) Eosinophils # (Auto) 0.3 10 ^3/uL (0-0.8) Basophils # (Auto) 0.1 10 ^3/uL (0-0.2) Nucleated Red Blood Cells 0.1 % Sodium Level 135 mmol/L (136-145) Potassium Level 3.7 mmol/L (3.5-5.1) Chloride Level 102 mmol/L (98-107) Carbon Dioxide Level 26 mmol/L (20-31) Anion Gap 7 (5-15) Blood Urea Nitrogen < 5 mg/dL (9-23) Creatinine 0.56 mg/dL (0.550-1.02) Glomerular Filtration Rate Calc 120 mL/min (>90) BUN/Creatinine Ratio 8.9 (10.0-20.0) Serum Glucose 113 mg/dL (74-106) Calcium Level 7.8 mg/dL (8.7-10.4) Total Bilirubin 1.4 mg/dL (0.2-1.0) Aspartate Amino Transferase (AST) 99 U/L (<34) Alanine Aminotransferase (ALT) 44 U/L (7-40) Alkaline Phosphatase 131 U/L (46-116) Total Protein 5.1 g/dL (5.7-8.2) Albumin 2.7 g/dL (3.2-4.8) Urine Color Yellow (Yellow) Urine Clarity Clear (Clear) Urine pH 5.5 (5.0-9.0) Urine Specific [place] 1.006 (1.001-1.035) Urine Protein Negative (Negative) Urine Ketones Negative (Negative) Urine Blood Negative /uL (Negative) Urine Nitrite Negative (Negative) Urine Bilirubin Negative (Negative) Urine Urobilinogen Normal mg/dL (Negative) Urine Leukocyte Esterase 3+ /uL (Negative) Urine RBC 1 /hpf (0 - 4) Urine Microscopic WBC 6 /HPF (0-5) Urine Squamous Epithelial Cells Few /hpf (<5) Urine Bacteria None seen /hpf (None Seen) Urine Glucose Normal mg/dL (Normal) Stool Occult Blood Negative (Negative) Stool Occult Blood Sample #3 (Negative) Stool for White Cells None seen Tumor Marker Alpha Fetoprotein 4.6 ng/mL (0.0-6.4) Carcinoembryonic Antigen 2.78 ng/mL (<=5.0) CA 19-9 Antigen 22 U/mL (0-35) Test 04/24/25 13:45 04/23/25 05:35 04/23/25 00:35 04/22/25 21:14 Body Fluid Source Peritoneal fluid Body Fluid pH 8.0 Body Fluid WBC (Manual) 233 CUMM (0-200) Body Fluid RBC (Manual) 37 CUMM (0-2000) Body Fluid Mononuclear Cells 85 % Body Fluid Polymorphonuclear Cells 15 % (0-25) Body Fluid Glucose 98 mg/dL (.) Body Fluid Total Protein 0.9 g/dL (.) Body Fluid Lactate Dehydrogenase 47 IU/L (.) Lactic Acid Level 1.0 mmol/L (0.4-2.0) Chlamydia trachomatis (MARKY) Negative (Negative) Neisseria gonorrhoeae (MARKY) Negative (Negative) Iron Level 58 ug/dL (50-170) Total Iron Binding Capacity 188 ug/dL (250-425) Percent Iron Saturation 30.9 % (15-50) Ferritin 489.1 ng/mL (10-291) Test 04/22/25 21:03 04/22/25 16:14 04/22/25 14:11 Prothrombin Time 12.4 sec (9.3-11.8) Prothrombin Time INR 1.19 (0.9-1.15) Magnesium Level 2.0 mg/dL (1.6-2.6) Plasma/Serum Blood Alcohol < 3.0 mg/dL (<10) Urine Mucus Few (None Seen) Urine Opiates Screen Neg (NEGATIVE) Urine Fentanyl Screen Neg (NEGATIVE) Urine Barbiturates Screen Neg (NEGATIVE) Urine Phencyclidine Screen Neg (NEGATIVE) Urine Amphetamines Screen Neg (NEGATIVE) Urine Benzodiazepines Screen Neg (NEGATIVE) Urine Cocaine Screen Neg (NEGATIVE) Urine Cannabinoids Screen Pos (NEGATIVE) Vitamin B12 Level 487 pg/mL (211-911) Folic Acid 1.20 ng/mL (>5.38) Thyroid Stimulating Hormone (TSH) 6.44 uIU/mL (0.55-4.78) Beta HCG, Quantitative 0.7 mIU/mL (1.5-4.2) Hepatitis A Antibody Total Positive (Negative) Hepatitis B Surface Antigen Negative (Negative) Hepatitis B Surface Antibody Positive (Negative) Hepatitis B Core Total Antibody Negative (Negative) Hepatitis C Antibody Negative (Negative) HIV (1&2) Antibody Negative (Negative) Other Laboratory Tests 04/26/25 05:07 Brief Hx & Hospital Course: 04/23-patient with no past medical history coming here with diffuse abdominal pain unintentional weight loss and some watery diarrhea. CT abdomen concerning for masses. We will get CT abdomen with IV contrast. Continue pain control with oxycodone and Toradol. Creatinine is stable. 04/24 still requiring pain control. Blood pressure is still soft. Given multiple GI meclizine inpatient we will bring GI onboard. Pending read on CT abdomen with IV contrast, read comes back has multiple large liver masses in left lobes of liver. We will likely need a liver biopsy. We will continue oxycodone with Toradol for pain control SBP is soft. Radiology consult for IR biopsy of liver mass. She has bilateral leg swelling right more than left, we will rule out DVT with ultrasound DVT study. 04/25- radiology did liver biopsy yesterday. Patient labs are stable plateau. In terms of AST ALT ALP. Masses or concerning for cancer on imaging with CT abdomen with contrast. Pathologist aware, we will contact pathologist to see if he can get expedited read. GI consulted and wants to do colonoscopy possibly outpatient. If read available today we will try to consult Oncology and have patient follow up with GI and Oncology outpatient. Social consulted to help set up PCP and insurance.. DVT study for lower extremities was negative. 750 cc straw-colored ascites fluid removed with paracentesis by IR yesterday. There is possibility that this could be infection we will start antibiotics ceftriaxone metronidazole 04/26 we will continue IV antibiotics for today. preliminary results of biopsy/ascitic fluid unconcerning for overt carcinoma or infection, patient PCP and GI will follow-up with official report outpatient. There is some indication that this is likely cirrhosis as patient has been drinking alcohol daily for last 4 years. Hepatitis panel was inconclusive of chronic hepatitis patient will need outpatient follow up for this cause with naat/PCR testing. SBP ruled out, no inpatient indication for inpatient oncology. Patient vitals stable, feeling improved. Patient is stable for discharge as per plan below. Diagnosis: Cirrhosis, new onset, decompensated, likely due to etoh Sepsis unable to rule out chronic hepatitis Cirrhotic dysphastic nodules possible cause of masses below s/p liver biopsy s/p ascites paracentesis Ascites, new diagnosed Gastroenteritis, infectious etiology possible UTI Intractable abdominal pain, resolving Abdominal masses as above Hepatic masses as above hepatic carcinoma, ruled out Leukocytosis Sinus tachycardia SBP ruled out Microcytic anemia discharge plan: - Start Lasix 20 mg daily, midodrine 10 mg twice daily, spironolactone 25 mg daily - use oxycodone 15 mg up to 3 times daily as needed if ibuprofen/ Motrin does not help remove pain. if taking daily ibuprofen, start Nexium daily tablets OTC. - do not use alcohol. set up AA meetings. discuss acamprosate and/or naltrexone breath PCP to help avoid alcohol cravings - nicotine patches sent for avoiding tobacco addiction. avoid smoking any tobacco. Discuss Chantix with PCP. - avoid red meats. avoid Lexi beans. increase protein intake in diet, eat low carb/low calorie diets. - Set up and finalize health insurance - Follow up with PCP to review discharge. - Referral to GI Dr. Boyd. Review pathology report of liver biopsy. Consider repeat ultrasound liver. review need for diuretics. Detailed workup on hepatitis panel. - return instruction given (return if Develop fevers, worsening abdominal distention, nausea/vomiting, intractable abdominal pain, jaundice/yellowing of skin, blood in stools, blood in vomit, loss of consciousness, confusion) Condition at Discharge: Fair Final Diagnosis/Problems List Cirrhosis, new onset, decompensated, likely due to etoh Sepsis unable to rule out chronic hepatitis Cirrhotic dysphastic nodules possible cause of masses below s/p liver biopsy s/p ascites paracentesis Ascites, new diagnosed Gastroenteritis, infectious etiology possible UTI Intractable abdominal pain, resolving Abdominal masses as above Hepatic masses as above hepatic carcinoma, ruled out Leukocytosis Sinus tachycardia SBP ruled out Microcytic anemia Discharge Disposition: Home Discharge Instruct/Medications Diet: Cardiac 2g Na,low cholest Activity: No Restrictions, As Tolerated Follow Up/Referral: See below Medications: See below Discharge Statement: "Patient was advised to return to the ER or call 911 if any headaches, dizziness, shortness of breath, chest pain, abdominal pain, bleeding, fevers, or worsening of medical condition. Patient was counseled about treatment plan, medications, possible side effects, patientverbalized understanding. All questions were answered to the best of my ability. This discharge took greater then 30 minutes in planning, reviewing documentation, counseling the patient, and discussing with other team members." Date of Service: Apr 26, 2025 Billing Provider: MARY PEDRO MD Common Visit Codes: [id number] DISCH DAY >30min MARY PEDRO MD Apr 26, 2025 17:20
== END 2025-04-26 20:00 | disposition home or self-care (01) | DRG 872 ==
LOC: ER 13:59 → OVERFLOW 20:23 → TELE-WESTW 04-23 15:11 → WEST WING 04-23 19:23
PROVIDERS: ADMIT Student in an Organized Health Care Education/Training Program; ATTEND Student in an Organized Health Care Education/Training Program
PROC: 0W9G3ZZ Drainage of Peritoneal Cavity, Percutaneous Approach (ICD-10-PCS; principal; 2025-04-24)
PROC: 0FB23ZX Excision of Left Lobe Liver, Percutaneous Approach, Diagnostic (ICD-10-PCS; 2025-04-24)
DX: A41.9 Sepsis, unspecified organism (principal); N39.0 Urinary tract infection, site not specified; C22.9 Malignant neoplasm of liver, not specified as primary or secondary; A09 Infectious gastroenteritis and colitis, unspecified; K70.31 Alcoholic cirrhosis of liver with ascites; K75.9 Inflammatory liver disease, unspecified; K46.9 Unspecified abdominal hernia without obstruction or gangrene; D50.9 Iron deficiency anemia, unspecified; K27.9 Peptic ulcer, site unspecified, unspecified as acute or chronic, without hemorrhage or perforation; K21.9 Gastro-esophageal reflux disease without esophagitis; R00.0 Tachycardia, unspecified; F17.210 Nicotine dependence, cigarettes, uncomplicated; K42.9 Umbilical hernia without obstruction or gangrene; F12.90 Cannabis use, unspecified, uncomplicated; F17.200 Nicotine dependence, unspecified, uncomplicated; Z71.6 Tobacco abuse counseling; Z88.2 Allergy status to sulfonamides
CPT/HCPCS: 36415; 47000; 49083; 74176; 74177; 76705; 76942; 80048; 80053; 80307; 80320; 81001; 82105; 82270; 82378; 82607; 82728; 82746; 83540; 83550; 83605; 83735; 83986; 84443; 84702; 85025; 85048; 85610; 86300; 86301; 86304; 86703; 86704; 86706; 86708; 86803; 87040; 87086; 87177; 87205; 87340; 89051; 93970; 96361; 96374; 97116; 97163; 97530; 99291; G0378; J1885; J2003; J2405; J2470; J3490